=== PATIENT | male | born 1995 | race Caucasian/White ===

== ENCOUNTER 2017-06-26 13:15 | Emergency (ER) | payer OTHER ==
--- NOTE | 2017-06-26 13:39 | EDM.PDOC ---
ED HPI GENERAL MEDICAL PROBLEM - General Chief Complaint: General Stated Complaint: FACE SWOLLEN ON RIGHT SIDE Time Seen by Provider: 06/26/17 13:35 Source of Information: Reports: Patient History Limitations: Reports: No Limitations - History of Present Illness INITIAL COMMENTS - FREE TEXT/NARRATIVE: HISTORY AND PHYSICAL: History of present illness: [Patient comes to the emergency room complaining of redness and swelling to his lower right eye. He picked up a pimple that he had on his right cheek yesterday and overnight his right cheek and below his right eye became very swollen, erythematous, tender. He has not had any fever or chills. No blurred or double vision. No abdominal pain, nausea or vomiting. No drainage from cheek. Denies any pain, and other complaints or concerns. He is otherwise a healthy male who is allergic to sulfa. Does not take medications regularly.] Review of systems: As per history of present illness and below otherwise all systems reviewed and negative. Past medical history: As per history of present illness and as reviewed below otherwise noncontributory. Surgical history: As per history of present illness and as reviewed below otherwise noncontributory. Social history: No reported history of drug or alcohol abuse. Family history: As per history of present illness and as reviewed below otherwise noncontributory. Physical exam: HEENT: Scabbed lesion to his right cheek over his medial zygomatic arch. 1 mm area of induration surrounding lesion. PERRLA. EOMI. Erythema and swelling is present to his right cheek and extending to his lower eyelid. No upper eyelid involvement or lateralizing involvement. Is tender with palpation. TMs are pearly tee and without erythema bilaterally. Nares are dry. Oral mucous members are pink and moist. No tonsillar swelling erythema or exudate. Neck supple and without lymphadenopathy. Lungs: Clear to auscultation.r. Heart: S1S2, regular rate and rhythm. Pelvis: Stable nontender. Genitourinary: Deferred. Rectal: Deferred. Extremities: Atraumatic, negative for cords or calf pain. Neurovascular unremarkable. Neuro: Awake, alert, oriented. Cranial nerves II through XII unremarkable. Cerebellum unremarkable. Motor and sensory unremarkable throughout. Exam nonfocal. Therapeutics: [Rocephin 1 g IM] Impression: [periorbital cellulitis, R eye] Plan: [Rx written for clindamycin 300 mg #40 sig one by mouth every 6 hours for 10 days 0 refills. Rocephin 1 g given IM in the ER. Discussed the importance of follow-up with local PCP. Strict return precautions are reviewed with the patient. He is in agreement with today's plan. All of his questions are answered and concerns are addressed.] Definitive disposition and diagnosis as appropriate pending reevaluation and review of above. Right Face Pain Score (Numeric/FACES): 8 - Related Data Allergies Allergy/AdvReac Type Severity Reaction Status Date / Time Sulfa (Sulfonamide Allergy Rash Verified 06/26/17 13:35 Antibiotics) Home Meds: Home Meds . [No Known Home Meds] 06/26/17 [History] Social & Family History - Tobacco Use Smoking Status *Q: Never Smoker Second Hand Smoke Exposure: No - Caffeine Use Caffeine Use: Reports: Coffee, Energy Drinks - Recreational Drug Use Recreational Drug Use: No ED ROS GENERAL - Review of Systems Review Of Systems: ROS reveals no pertinent complaints other than HPI. ED EXAM, GENERAL - Physical Exam Exam: See Below Course - Vital Signs Last Recorded V/S: Last Vital Signs Temp 97.1 F 06/26/17 13:34 Pulse 76 06/26/17 14:30 Resp 16 06/26/17 14:30 BP 120/70 06/26/17 14:30 Pulse Ox 93 L 06/26/17 14:30 - Orders/Labs/Meds Meds: Medications Discontinued Medications Generic Name Dose Route Start Last Admin Trade Name Tejas PRN Reason Stop Dose Admin Ceftriaxone Sodium 1,000 mg/ 4 mls @ 4 mls/sec 06/26/17 13:56 06/26/17 14:15 Lidocaine HCl IM 06/26/17 13:57 4 mls/sec ONETIME ONE Administration Departure - Departure Time of Disposition: 13:57 Disposition: Home, Self-Care 01 Condition: Good Clinical Impression: Periorbital cellulitis of right eye - Discharge Information Instructions: Orbital Cellulitis Referrals: Sujit Burger DO [Primary Care Provider] - Forms: ED Department Discharge Additional Instructions: The following information is given to patients seen in the emergency department who are being discharged to home. This information is to outline your options for follow-up care. We provide all patients seen in our emergency department with a follow-up referral. The need for follow-up, as well as the timing and circumstances, are variable depending upon the specifics of your emergency department visit. If you don't have a primary care physician on staff, we will provide you with a referral. We always advise you to contact your personal physician following an emergency department visit to inform them of the circumstance of the visit and for follow-up with them and/or the need for any referrals to a consulting specialist. The emergency department will also refer you to a specialist when appropriate. This referral assures that you have the opportunity for follow-up care with a specialist. All of these measure are taken in an effort to provide you with optimal care, which includes your follow-up. Under all circumstances we always encourage you to contact your private physician who remains a resource for coordinating your care. When calling for follow-up care, please make the office aware that this follow-up is from your recent emergency room visit. If for any reason you are refused follow-up, please contact the [facility] emergency department at and asked to speak to the emergency department charge nurse. [facility] [address] [place] [id number] Follow-up with your local primary care provider or at the clinic listed above in the next 48-72 hours. Follow-up is imperative with periorbital cellulitis. Take your antibiotics as prescribed. You may alternate Tylenol and ibuprofen as needed for discomfort. Return to ER as needed as discussed.
[2017-06-26] MEDS ORDERED: cefTRIAXone 1,000 MG in Lidocaine 1% 4 ML IM ONE (13:56)
== END 2017-06-26 14:30 | disposition home or self-care (01) ==
LOC: MW.ED 13:15
DX: L03.213 Periorbital cellulitis (principal); Z88.2 Allergy status to sulfonamides
CPT/HCPCS: 96372; 99282; J0696

== ENCOUNTER 2017-12-14 11:38 | Emergency (ER) | payer OTHER ==
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
== END 2017-12-14 13:39 | disposition home or self-care (01) ==
LOC: MW.ED 11:38
DX: S06.0X9A Concussion with loss of consciousness of unspecified duration, initial encounter (principal); Z88.2 Allergy status to sulfonamides; Y04.8XXA Assault by other bodily force, initial encounter
CPT/HCPCS: 70450; 70450-26; 70486; 70486-26; 99283; 99284-25